=== PATIENT | female | born 1990 | race African-American/Black ===

== ENCOUNTER 2021-02-14 20:36 | Emergency (ER) | payer SELFPAY ==
[~2021-02-14] VITALS: Ht 162.6 cm; Wt 92.4 kg
[2021-02-14 23:21] VITALS: BP 119/68
== END 2021-02-14 23:26 | disposition home or self-care (01) ==
LOC: ED 23:00
DX: L20.9 Atopic dermatitis, unspecified (principal); L50.9 Urticaria, unspecified
CPT/HCPCS: 99283; Q0177